=== PATIENT | female | born 1995 | race Two or more races ===

== ENCOUNTER 2024-03-04 06:51 | Emergency (ER) | payer MEDICAID, OTHER ==
[~2024-03-04] VITALS: Ht 162.6 cm; Wt 55.0 kg
[2024-03-04 07:02] VITALS: BP 117/63; PULSE 87; RESP 18; TEMP 98.8; O2SAT 99
[2024-03-04 07:35] LABS: CHLORIDE 106 mEq/L (98-107); SODIUM 141 mEq/L (136-145)
[2024-03-04 07:36] LABS: CARBON DIOXIDE 20 mEq/L (21-32)
[2024-03-04 07:37] LABS: CALCIUM 9.7 mg/dL (8.7-10.4)
[2024-03-04 07:39] LABS: BASOPHILS % 0.4 % (0.0-2.0); EOSINOPHILS % 0.7 % (0.0-5.0); HEMATOCRIT. 39.1 % (36.0-48.0); HEMOGLOBIN. 12.5 g/dL (12.0-16.0); LYMPHOCYTES % 22.4 % (20.0-50.0); MEAN CORPUSCULAR HEMOGLOBIN 27.7 pg (28.0-32.0); MEAN CORPUSCULAR HGB CONC 32.1 g/dL (31.0-37.0); MEAN CORPUSCULAR VOLUME 86.4 fL (81.0-99.0); MEAN PLATELET VOLUME 7.8 fl (7.4-10.4); NEUTROPHILS % 73.5 % (40.0-76.0); PLATELET 313 x1000/uL (130-400); RED BLOOD CELL COUNT 4.53 mill/uL (4.2-5.4); RED CELL DISTRIBUTION WIDTH 13.3 % (11.6-14.6); WHITE BLOOD COUNT 21.6 x1000/uL (4.5-11.0)
[2024-03-04 07:41] LABS: CREATININE 0.6 mg/dL (0.6-1.0); GLUCOSE 58 mg/dL (70-105); UREA NITROGEN BLOOD 13 mg/dL (9-23)
[2024-03-04 07:42] LABS: ETHANOL BLOOD 144 mg/dL (<10); PROTHROMBIN TIME 10.9 sec (9.6-11.0)
[2024-03-04 07:51] LABS: HCG SCREEN NEGATIVE
[2024-03-04 08:26] LABS: CLARITY URINE CLEAR (CLEAR); COLOR URINE YELLOW (YELLOW); GLUCOSE URINE NEGATIVE (NEGATIVE); KETONES URINE 3+ (NEGATIVE); LEUKOCYTE ESTERASE URINE NEGATIVE (NEGATIVE); NITRITE URINE NEGATIVE (NEGATIVE); OCCULT BLOOD URINE NEGATIVE (NEGATIVE); PROTEIN URINE TRACE (NEGATIVE); SPECIFIC GRAVITY URINE 1.023 (1.005-1.030); UROBILINOGEN URINE 0.2 E.U./dL (0.2-1.0)
[2024-03-04 08:34] LABS: POTASSIUM 2.6 mEq/L (3.5-5.1)
[2024-03-04 08:35] LABS: MUCUS URINE 1+ /lpf (< = 2+); SQUAMOUS EPITHELIAL CELL URINE 1+ /lpf (RARE/1+)
[2024-03-04 08:36] LABS: HYALINE CASTS URINE 0-5 /lpf; RBC URINE NONE SEEN /hpf (0-2); WBC URINE 0-2 /hpf (0-2)
[2024-03-04 08:37] LABS: BACTERIA URINE NONE SEEN
[2024-03-04] MEDS: ONDANSETRON 4MG ODT PO ONE (08:46)
== END 2024-03-04 08:57 | disposition home or self-care (01) ==
LOC: ER 06:51
DX: F10.129 Alcohol abuse with intoxication, unspecified (principal); R11.2 Nausea with vomiting, unspecified; Y90.6 Blood alcohol level of 120-199 mg/100 ml
CPT/HCPCS: 80048; 81003; 80320; 84703; 85025; 85610; 36415; 99283; Q0162; G0480